=== PATIENT | male | born 1950 | race Two or more races ===

== ENCOUNTER 2022-02-17 11:01 | Outpatient (REF) | payer OTHER, SELFPAY ==
[2022-02-17 12:47] LABS: Alanine Aminotransferase 25 U/L (0-40); Albumin Level 3.9 g/dL (3.5-5.0); Alkaline Phosphatase 82 U/L (39-117); Anion Gap 13 (12-20); Aspartate Amino Transferase 18 U/L (5-37); Bilirubin Total 0.5 mg/dL (0.0-1.0); Blood Urea Nitrogen 16 mg/dL (9-16); Calcium 9.7 mg/dL (8.4-10.2); Carbon Dioxide 23 mmol/L (22-29); Chloride 106 mmol/L (96-108); Cholesterol 133 mg/dL; Estimated Glomerular Filt Rate > 60; Glucose Random 194 mg/dL (60-115); HDL Cholesterol 44 mg/dL; LDL Cholesterol Calculated 65 mg/dl; Potassium 4.3 mmol/L (3.3-5.1); Sodium 138 mmol/L (135-145); Total Protein 7.6 g/dL (6.5-8.0); Triglycerides 121 mg/dL
== END 2022-02-17 11:02 | disposition home or self-care (01) ==
LOC: HO.LAB 11:01
PROVIDERS: Absent Provider Physician Assistant; PCP Nurse Practitioner Family; Visit Provider Nurse Practitioner Family
DX: E11.9 Type 2 diabetes mellitus without complications (principal); E78.5 Hyperlipidemia, unspecified
CPT/HCPCS: 36415; 80053; 80061

== ENCOUNTER 2022-10-23 14:33 | Outpatient (AMB) | payer MEDICARE, SELFPAY ==
[2022-10-23 14:37] VITALS: BP 143/81; PULSE 72; BMI 30.2
--- NOTE | 2022-10-23 14:37 | MHC.OFFVIS ---
Intake Vital Signs 10/23/22 14:37 Height 5 ft 6 in Weight 186 lb 15.232 oz BMI 30.2 BP 143/81 H Blood Pressure Location Lt brachial Position Sitting Pulse 72 Intake Visit Reasons: Fecal abnormalities Intake Note: Ralph presents in office as a new.patient for fecal abnormalities PT CC: pt report having no concerns pt denies any other GI Issues Electric Train Driver Required: Yes Electric Train Driver Language: Greek Accompanied by: Spouse Allergies metformin Adverse Reaction (Intermediate, Verified 10/23/22 14:39) Abdominal Pain HPI Fecal abnormalities HPI Details 72 year old? male here today for pre colonoscopy screening.? Patient was sent to us by his PCP.? This is his first colonoscopy screening.? Patient had positive Cologuard that was done in July of 2022. Patient denies any gastrointestinal symptoms in the past or at present.? Denies any personal or family history of gastrointestinal disease, colon polyps, or cancer.? Denies history of difficulty with sedation or anesthesia in the past.? Negative for history of sleep apnea.? Denies any history of cardiac, renal, pulmonary, or hepatic disease.?? No history of infectious? diseases like hepatitis A, B, C, HIV or tuberculosis.? Patient is not on any anticoagulation therapy. PFSH Surgical History H/O hernia repair Family History Sister Heart disease Father Throat cancer Social History Housing: House Patient Tobacco Use Status: Never used Tobacco e-Cigarette/Vaping Use: Never Used Second Hand Smoke Exposure: No service: No Current occupational status: retired Cognitive needs: No Hearing needs: No Vision needs: No Review of Systems Const Denies weight gain and Denies weight loss ENT Reports no additional complaints, Denies dysphagia and Denies odynophagia Card Reports no additional complaints Resp Reports no additional complaints GI Denies abdominal pain, Denies belching, Denies melena, Denies bloating, Denies change in bowel habits, Denies dysphagia, Denies excessive flatus, Denies dyspepsia, Denies heartburn, Denies diarrhea, Denies loose stools, Denies nausea, Denies odynophagia and Denies vomiting Reports no additional complaints Musc Reports no additional complaints Neuro Reports no additional complaints Psych Reports no additional complaints Endo Reports no additional complaints Physical Exam Vital Signs: Last Vital Signs Pulse 72 10/23/22 14:37 BP 143/81 H 10/23/22 14:37 BMI result Body Mass Index 30.2 Const General: healthy appearing, no acute distress and well developed Nutritional Appearance: obese Orientation/consciousness: patient oriented x3 HEENT Head: Yes normal to inspection, Yes normocephalic and Yes atraumatic Face and sinus: Yes normal facial exam Mouth: Normal oral and palatal mucosa present Throat: Yes posterior oropharynx normal, Yes tonsils normal and Yes uvula midline Eyes General: appearance normal, both eyes and all related structures Neck Neck: Yes normal visual inspection, Yes full ROM and Yes trachea midline Thyroid: Thyroid normal Resp Effort & Inspection: normal respiratory effort, able to speak in complete sentences, no tracheal deviation and symmetric chest movement Auscultation: clear to auscultation bilaterally Cardio Rate: regular rate Heart sounds: S1 normal heart sound present and S2 normal heart sound present GI Inspection: Yes normal to inspection, No distended and Yes obesity Palpation (GI): Soft to palpation, not firm, nontender and No hepatosplenomegaly present Auscultation: normal bowel sounds General: Yes no CVA tenderness Back/Spine/Pelvis Back: no CVA tenderness Skin General skin exam: elasticity normal, turgor normal and dry skin Neuro General: patient oriented x3 Psych Appearance: grossly normal Mental Status: mental status grossly normal Speech and movement: Normal speech and movement present Assessment & Plan Assessment & Plan (1) Positive colorectal cancer screening using Cologuard test: Code(s): R19.5 - Other fecal abnormalities Plan: Patient denies any GI, cardiac or respiratory symptoms.? Denies any issues with anesthesia in the past.? Denies any history of sleep apnea.? No history infectious diseases in the past or present.? Not on any anticoagulation therapy.? No family or personal history of colon cancer or polyps.? Patient denies melena, hematochezia, unintentional weight loss or ribbon like stools.? Positive Cologuard in July of 2022. Discussed at length the pre-procedure,? prep, diet & medications as well as what to expect prior, during and after the procedure.?? Stressed the importance of good bowel prep. ?Recommended the use of Vaseline or Calmoseptine OTC & baby wipes with bowel movements to promote comfort.? ?Patient verbalizes understanding and agrees to plan of care.? He was given the opportunity to ask questions and all questions answered.? We will see him after the procedure.? Medications: New bisacodyl (Dulcolax (bisacodyl)) take 2 tabs at noon the day before your colonoscopy 10 mg (2 x 5 mg) PO ONCE 2 tabs 0RF 1 day Z12.11 - Encounter for screening for malignant neoplasm of colon bisacodyl (Dulcolax (bisacodyl)) take 2 tabs at noon the day before your colonoscopy 10 mg (2 x 5 mg) PO ONCE 2 tabs 0RF 1 day Z12.11 - Encounter for screening for malignant neoplasm of colon polyethylene glycol 3350 (Miralax) As directed by gastroenterology department at [facility] 238 grams PO ONCE 238 grams 0RF Z12.11 - Encounter for screening for malignant neoplasm of colon polyethylene glycol 3350 (Miralax) As directed by gastroenterology department at [facility] 238 grams PO ONCE 238 grams 0RF Z12.11 - Encounter for screening for malignant neoplasm of colon Coding Level of Care Code New Pt Level 3 (91868) Diagnoses Positive colorectal cancer screening using Cologuard test R19.5 Time Spent (min) 40 Comment 30 minutes spent with patient and additional 10 minutes spent reviewing his records
== END 2022-10-23 16:00 | disposition home or self-care (01) ==
PROVIDERS: PCP Nurse Practitioner Family; Visit Provider Nurse Practitioner Family
DX: R19.5 Other fecal abnormalities (principal)
CPT/HCPCS: 99203

== ENCOUNTER → 2022-10-23 14:33 | Outpatient (BNVA) | payer MEDICARE, SELFPAY | PROVIDERS: PCP Nurse Practitioner Family; Visit Provider Nurse Practitioner Family ==

== ENCOUNTER 2022-12-05 12:43 | Day surgery (SDC) | payer MEDICARE, SELFPAY ==
--- NOTE | 2022-12-05 12:53 | MHC.SHP ---
Documented by User: Lesly Aldana MD 12/05/22 13:33 Pre-Procedural Eval Section A Date of Service: 12/05/22 Section B Chief Complaint: Other fecal abnormalities Details of Present Illness: pos cologuard Relevant Family History (Specify if Yes): No Relevant Social History: None Present Medications: see Short Stay Collaborative assessment Medical History: Significant History (type 2 diabetes, hypertension, hyperlipidemia. ..) History of Previous Operations: Relevant previous surgery/procedure and date(s) (hernia repair) Allergies: Allergies Allergy/AdvReac Type Severity Reaction Status Date / Time metformin AdvReac Intermediate Abdominal Verified 10/23/22 14:39 Pain Review of Systems Sugical H&P ROS: Negative: Constitution, Cardiovascular, Respiratory, Neurological, Psychiatric, Hem-Onc, Allergic/Immunologic, Gastrointestinal, Genitourinary, Musculoskeletal, Integumentary, Endocrine and Eyes/Ears/Nose/Throat Exam Surgical H&P Exam: Normal: HEENT, Normal: Heart, Normal: Lungs, Normal: Extremities, Normal: Abdomen, Normal: Skin and Normal: Neurological Plan Diagnosis/Plan: Unchanged I have reviewed the history and physical and performed a pertinent physical examination on my patient. No changes have occurred unless specified. Time Spent With Patient Time: Total time managing care of this patient today ____ minutes. Documented by User: Maryam Hart DO 12/05/22 13:27 Pre-Procedural Eval Section A Date of Service: 12/05/22 Section B Chief Complaint: Other fecal abnormalities
[2022-12-05 13:15] VITALS: BMI 29.9
[2022-12-05 13:21] VITALS: BP 147/86; PULSE 63; RESP 18; TEMP 35.7; O2SAT 98
[2022-12-05 13:25] LABS: Glucose, Whole Blood 157 mg/dL (60-115)
--- NOTE | 2022-12-05 13:25 | HO.ANESPROP2 ---
Documented by User: Janna Barreto MD 12/05/22 13:05 [facility] Active Problems Active Problems: All Active Problems (Updated 07/25/22 @ 14:48 by Douglas Eckert PA-C) Positive colorectal cancer screening using Cologuard test (Acute) Obese (Acute) Colon cancer screening (Acute) HTN (hypertension) (Acute) HLD (hyperlipidemia) (Acute) DMII (diabetes mellitus, type 2) (Acute) Past Medical History Functional capacity: independent ambulation Family History Family History Sister Heart disease Father Throat cancer Surgical History Surgical History H/O hernia repair Social History Social History Housing: House Patient Tobacco Use Status: Never used Tobacco e-Cigarette/Vaping Use: Never Used Second Hand Smoke Exposure: No Use of substances other than those prescribed or required for medical reasons: No Are you DNR?: No Advance Directives: No Advance Directives Information Provided: Yes service: No Current occupational status: retired Cognitive needs: No Hearing needs: No Vision needs: No Meds Allergies Allergy/AdvReac Type Severity Reaction Status Date / Time metformin AdvReac Intermediate Abdominal Verified 10/23/22 14:39 Pain Home Medications Medication Instructions Recorded Confirmed Last Taken Type alcohol swabs (Alcohol Prep Pads) pad topical QID diabetes mellitus 05/03/21 06/15/22 Unknown History type 2 blood-glucose meter (OneTouch #1 ea 05/03/21 06/15/22 Unknown History Verio Flex Meter) pen needle, diabetic 31 gauge x #1,200 ea 05/03/21 06/15/22 Unknown History 5/16 (BD Ultra-Fine Short Pen Needle) insulin lispro 100 unit/mL 8 unit subcut DAILY 06/15/22 06/15/22 Unknown History subcutaneous pen (Humalog KwikPen (U-100) Insulin) Exam Exam Date and Time: December 05, 2022 [id number] Documented by User: Maryam Hart DO 12/05/22 13:29 HPI - Anesthesia Eval Consult details Narrative: 72 yo M presenting for colonoscopy [facility] Family History Family History Sister Heart disease Father Throat cancer Surgical History Surgical History H/O hernia repair History of Problems with Anesthesia: No Social History Social History Housing: House Patient Tobacco Use Status: Never used Tobacco e-Cigarette/Vaping Use: Never Used Second Hand Smoke Exposure: No Use of substances other than those prescribed or required for medical reasons: No Are you DNR?: No Advance Directives: No Advance Directives Information Provided: Yes service: No Current occupational status: retired Cognitive needs: No Hearing needs: No Vision needs: No Meds Allergies Allergy/AdvReac Type Severity Reaction Status Date / Time metformin AdvReac Intermediate Abdominal Verified 10/23/22 14:39 Pain Home Medications Medication Instructions Recorded Confirmed Last Taken Type alcohol swabs (Alcohol Prep Pads) pad topical QID diabetes mellitus 05/03/21 06/15/22 Unknown History type 2 blood-glucose meter (OneTouch #1 ea 05/03/21 06/15/22 Unknown History Verio Flex Meter) pen needle, diabetic 31 gauge x #1,200 ea 05/03/21 06/15/22 Unknown History 5/16 (BD Ultra-Fine Short Pen Needle) insulin lispro 100 unit/mL 8 unit subcut DAILY 06/15/22 06/15/22 Unknown History subcutaneous pen (Humalog KwikPen (U-100) Insulin) Exam Height,Weight and Vital Signs: Height 5 ft 6 in Weight 83.915 kg Vital Signs Temperature 96.3 F L 12/05/22 13:21 Pulse Rate 63 12/05/22 13:21 Respiratory Rate 18 12/05/22 13:21 Blood Pressure 147/86 H 12/05/22 13:21 Pulse Oximetry 98 12/05/22 13:21 Oxygen Delivery Method Room Air 12/05/22 13:21 Temperature 96.3 F L 12/05/22 13:21 Pulse Rate 63 12/05/22 13:21 Respiratory Rate 18 12/05/22 13:21 Blood Pressure 147/86 H 12/05/22 13:21 Pulse Oximetry 98 12/05/22 13:21 Oxygen Delivery Method Room Air 12/05/22 13:21 Airway Mallampati Class: II TM Dist: >3cm Neck ROM: Full Loose/Missing/Broken Teeth: Yes (edentulous) Heart: S1S2 Lungs: CTAB Assessment and Plan Assessment Anesthesia Assessment: Anesthesia Plan Discussed and Chart Reviewed Final Anesthetic Review History of Problems with Anesthesia: No NPO: Yes ASA Class: II Final Preanesthetic Review: No Changes in Pt Med Stat, Meds/Allgs Chart Reviewed, Consent Obtained/Reviewed and Anes Risks/Benef Reviewed Patient Risk: Low Procedure Risk: Low Anesthetic Plan Anesthetic Plan: MAC: and Agree w/ Assess. and Plan Disposition: Standard PACU
[2022-12-05] MEDS: Lactated Ringers 1,000 ML 50 ML IVCONT (13:26)
--- NOTE | 2022-12-05 14:24 | P.OP_ITS ---
Operative Note Operative Note Date of Service: 12/05/22 Narrative: Operative Information Procedure Description: Colonoscopy Indication: pos stool test Anesthesia: MAC COLONOSCOPY Instrument: Olympus variable stiffness pediatric scope 190L Colonoscopy Monitoring: Vital signs and clinical assessment, continuous EKG monitoring, Pulse oximetry, Carbon Dioxide monitoring and blood pressure monitoring were done throughout the procedure. Colon withdrawal time was 39 minutes. Procedure: The patient was placed in the left lateral decubitis position and pre-procedure medications were administered. After a digital rectal examination of the ano-rectum, the video colonoscope was inserted into the rectum and advanced through the colon to the cecum/TI. The colonoscope was slowly withdrawn in a retrograde panoramic fashion and the colon mucosa was carefully examined including a retroflexed view of the rectum. Findings and interventions are described below. Procedure Difficulty: moderate Findings: Terminal Ileum-normal Cecum: 4-6 mm sessile polyp removed with biopsy forceps Ascending Colon: x4 larger sessile polyps measuring 11-15 mm in size. Three lifted with eleview and removed with either cold or hot snare. One lesion was clipped for hemostasis. Another 5-7 mm sessile polyp removed with cold biopsy forceps Transverse Colon -normal Descending Colon: 8-10 mm sessile polyp removed with cold snare and residual tissue with cold forceps Sigmoid Colon: normal Rectum: Retroflexion with small internal hemorrhoids, grade I Anorectum - normal Colon preparation: [place] Bowel Preparation Scale Right colon; 1-2 Transverse colon: 2 Left colon; 2 (0 = Unprepared colon segment with mucosa not seen due to solid stool that cannot be cleared. 1 = Portion of mucosa of the colon segment seen, but other areas of the colon segment not well seen due to staining, residual stool and/or opaque liquid. 2 = Minor amount of residual staining, small fragments of stool and/or opaque liquid, but mucosa of colon segment seen well. 3 = Entire mucosa of colon segment seen well with no residual staining, small fragments of stool or opaque liquid) Impression and Post Procedure Diagnosis: polyps internal hemorrhoids Plan: High fiber diet leaflet Avoid straining at stool, epsom salts and sitz bath, anusol supps or cream Repeat Colonoscopy in 3-6 months due to polyp burden and fair prpe on right where the majority of the polyps were located or earlier if clinically indicated Above findings were reviewed with the patient and relevant handouts were provided if indicated.
[2022-12-05 14:28] VITALS: BP 97/53; PULSE 70; RESP 18; TEMP 36.2; O2SAT 95
[2022-12-05 14:43] VITALS: BP 128/73; PULSE 55; RESP 16; TEMP 36.1; O2SAT 96
== END 2022-12-05 15:32 | disposition home or self-care (01) ==
PROVIDERS: PCP Physician Assistant; Visit Provider Internal Medicine Gastroenterology
PROC: 0DJD8ZZ Inspection of Lower Intestinal Tract, Via Natural or Artificial Opening Endoscopic (ICD-10-PCS; CPT 45378; principal; 2022-12-05 10:50)
DX: R19.5 Other fecal abnormalities (principal); D12.0 Benign neoplasm of cecum; D12.2 Benign neoplasm of ascending colon; D12.4 Benign neoplasm of descending colon; K64.0 First degree hemorrhoids; I10 Essential (primary) hypertension; E78.5 Hyperlipidemia, unspecified; E66.9 Obesity, unspecified; Z68.30 Body mass index [BMI] 30.0-30.9, adult; E11.9 Type 2 diabetes mellitus without complications; Z79.4 Long term (current) use of insulin; Z88.8 Allergy status to other drugs, medicaments and biological substances
CPT/HCPCS: 45385; 45380; 45381; 82947; 88305

== ENCOUNTER → 2022-12-05 12:43 | Outpatient (BNV) | payer MEDICARE, SELFPAY | PROVIDERS: PCP Physician Assistant; Visit Provider Internal Medicine Gastroenterology | DX: R19.5 Other fecal abnormalities (principal); D12.0 Benign neoplasm of cecum; D12.2 Benign neoplasm of ascending colon; D12.4 Benign neoplasm of descending colon; K64.0 First degree hemorrhoids | CPT/HCPCS: 45380; 45381; 45385 ==

== ENCOUNTER 2022-12-20 15:25 | Outpatient (AMB) | payer MEDICARE, SELFPAY ==
--- NOTE | 2022-12-20 15:34 | A.OFFVIS_ITS ---
Intake Vital Signs 12/20/22 15:36 Height 5 ft 6 in Weight 185 lb BMI 29.9 BP 158/81 H Blood Pressure Location Lt brachial Position Sitting Pulse 65 Intake Visit Reasons: S/P [place]; Dr. Aldana Intake Note: Ralph presents in the office as a follow up colonoscopy. CC: No concerns he states everything has been normal. Papier Mache' Molder Required: Yes Papier Mache' Molder Name: Travis [id number] Allergies metformin Adverse Reaction (Intermediate, Verified 12/27/22 14:19) Abdominal Pain HPI S/P [place]; Dr. Aldana HPI Details LAST VISIT: Positive colorectal cancer screening using Cologuard test Patient denies any GI, cardiac or respiratory symptoms.? Denies any issues with anesthesia in the past.? Denies any history of sleep apnea.? No history infectious diseases in the past or present.? Not on any anticoagulation therapy.? No family or personal history of colon cancer or polyps.? Patient denies melena, hematochezia, unintentional weight loss or ribbon like stools.? Positive Cologuard in July of 2022. Discussed at length the pre-procedure,? prep, diet & medications as well as what to expect prior, during and after the procedure.?? Stressed the importance of good bowel prep. ?Recommended the use of Vaseline or Calmoseptine OTC & baby wipes with bowel movements to promote comfort.? ?Patient verbalizes understanding and agrees to plan of care.? He was given the opportunity to ask questions and all questions answered.? We will see him after the procedure.? COLONOSCOPY: Findings: Terminal Ileum-normal Cecum: 4-6 mm sessile polyp removed with biopsy forceps Ascending Colon: x4 larger sessile polyps measuring 11-15 mm in size. Three lifted with eleview and removed with either cold or hot snare. One lesion was clipped for hemostasis. Another 5-7 mm sessile polyp removed with cold biopsy forceps Transverse Colon -normal Descending Colon: 8-10 mm sessile polyp removed with cold snare and residual tissue with cold forceps Sigmoid Colon: normal Rectum: Retroflexion with small internal hemorrhoids, grade I Anorectum - normal Colon preparation: [place] Bowel Preparation Scale Right colon; 1-2 Transverse colon: 2 Left colon; 2 (0 = Unprepared colon segment with mucos a not seen due to solid stool that cannot be cleared. 1 = Portion of mucosa of the colon segme nt seen, but other areas of the colon segment not well seen due to staining, residual stool and/or opaque liquid. 2 = Minor amount of residual staining, s mall fragments of stool and/or opaque liquid, but mucosa of colon segment seen well. 3 = Entire mucosa of colon segment seen well with no residual staining, small fragments of stool or opaque liquid) Impression and Post Procedure Diagnosis: polyps internal hemorrhoids Plan: High fiber diet leaflet Avoid straining at stool, epsom salts and sitz bath, anusol supps or cream Repeat Colonoscopy in 3-6 months due to polyp burden and fair prpe on right where the majority of the polyps were located or earlier if clinically indicated PATHOLOGY REPORT Diagnosis A. Cecum, polypectomy: Tubular adenoma; negative for high-grade dysplasia or carcinoma. B. Colon, ascending, polypectomies: Fragments of tubular adenomata; negative for high-grade dysplasia or carcinoma. C. Colon, descending, polypectomy: Tubular adenoma; negative for high-grade dysplasia or carcinoma TODAY'S VISIT: Patient is here today for follow-up and to discuss colonoscopy results. Patient had multiple polyps that showed tubular adenoma, for larger polyps found in the ascending colon. Patient also had suboptimal prep and recommendation was made for patient to return for colorectal screening in 3-6 months. Patient reports that he feels like he is moving his bowels well without any issues. States that he feels like he empties his bowels completely. Patient denies any issues with prep day before his procedure. procedure. Patient denies melena, hematochezia, unintentional weight loss or ribbon like stools. Will discuss prep and will order extra Dulcolax for 1 week before the procedure. Patient otherwise reports to be feeling well. Denies any GI concerning symptoms. Patient reports that he did well with anesthesia. [facility] Medical History (Updated 12/20/22 @ 16:14 by JENNIFER Ruelas) Tubular adenoma Surgical History Hx of colonoscopy H/O hernia repair Family History Sister Heart disease Father Throat cancer Social History Housing: House Patient Tobacco Use Status: Never used Tobacco e-Cigarette/Vaping Use: Never Used Second Hand Smoke Exposure: No service: No Current occupational status: retired Cognitive needs: No Hearing needs: No Vision needs: No Review of Systems Const Denies weight gain and Denies weight loss ENT Reports no additional complaints, Denies dysphagia and Denies odynophagia Card Reports no additional complaints Resp Reports no additional complaints GI Denies abdominal pain, Denies belching, Denies melena, Denies bloating, Denies change in bowel habits, Denies dysphagia, Denies excessive flatus, Denies dyspepsia, Denies heartburn, Denies diarrhea, Denies loose stools, Denies nausea, Denies odynophagia and Denies vomiting Reports no additional complaints Musc Reports no additional complaints Neuro Reports no additional complaints Psych Reports no additional complaints Endo Reports no additional complaints Physical Exam Vital Signs: Last Vital Signs Pulse 65 12/20/22 15:36 BP 158/81 H 12/20/22 15:36 BMI result Body Mass Index 29.9 Const General: healthy appearing, no acute distress and well developed Nutritional Appearance: obese Orientation/consciousness: patient oriented x3 HEENT Head: Yes normal to inspection, Yes normocephalic and Yes atraumatic Face and sinus: Yes normal facial exam Mouth: Normal oral and palatal mucosa present Throat: Yes posterior oropharynx normal, Yes tonsils normal and Yes uvula mid line Eyes General: appearance normal, both eyes and all related structures Neck Neck: Yes normal visual inspection, Yes full ROM and Yes trachea midline Thyroid: Thyroid normal Resp Effort & Inspection: normal respiratory effort, able to speak in complete sentences, no tracheal deviation and symmetric chest movement Auscultation: clear to auscultation bilaterally Cardio Rate: regular rate Heart sounds: S1 normal heart sound present and S2 normal heart sound present GI Inspection: Yes normal to inspection, No distended and Yes obesity Palpation (GI): Soft to palpation, not firm, nontender and No hepatosplenomegaly present Auscultation: normal bowel sounds General: Yes no CVA tenderness Back/Spine/Pelvis Back: no CVA tenderness Skin General skin exam: elasticity normal, turgor normal and dry skin Neuro General: patient oriented x3 Psych Appearance: grossly normal Mental Status: mental status grossly normal Assessment & Plan Assessment & Plan (1) Tubular adenoma: Code(s): D36.9 - Benign neoplasm, unspecified site (2) Status post colonoscopy: Code(s): Z98.890 - Other specified postprocedural states Plan Discussed with patient the importance of good bowel prep. Trying to do good job with clear liquids. Avoiding fiber for few days before the procedure. Patient will start taking Dulcolax 7 days before procedure in the evening with 1 day before procedure for tablets at noon. Patient will do split MiraLax prep. May book the procedure for patient. Patient denies any issues with anesthesia. Not on any anticoagulation medications. Patient denies any respiratory or cardiac symptoms. I will see patient after the procedure, sooner on as needed basis. Patient is agreeable to this plan and verbalizes understanding of instructions. He was given the opportunity to ask questions and all questions answered. Thank you for allowing to participate in his care Medications: New bisacodyl (Dulcolax (bisacodyl)) Comience a dora 2 tabletas todas las noches 7 [place] antes del colonoscopia y 1 rashad antes del procedimiento, tome 4 tabletas al mediodia seguido de la colonoscopia de MiraLax. 10 mg (2 x 5 mg) PO BEDTIME 16 tabs 0RF Z12.11 - Encounter for screening for malignant neoplasm of colon polyethylene glycol 3350 (Miralax) As directed by gastroenterology department at [facility] 238 grams PO ONCE 238 grams 0RF Z12.11 - Encounter for screening for malignant neoplasm of colon bisacodyl (Dulcolax (bisacodyl)) Comience a dora 2 tabletas todas las noches 7 [place] antes del colonoscopia y 1 rashad antes del procedimiento, tome 4 tabletas al mediodia seguido de la colonoscopia de MiraLax. 10 mg (2 x 5 mg) PO BEDTIME 16 tabs 0RF Z12.11 - Encounter for screening for malignant neoplasm of colon Coding Level of Care Code Est Pt Level 3 (82318) Diagnoses Tubular adenoma D36.9 Status post colonoscopy Z98.890 Time Spent (min) 30 Comment 20 minutes spent with patient and additional 10 minutes spent reviewing his records
[2022-12-20 15:36] VITALS: BP 158/81; PULSE 65; BMI 29.9
== END 2022-12-20 16:46 | disposition home or self-care (01) ==
PROVIDERS: PCP Nurse Practitioner Family; Visit Provider Nurse Practitioner Family
DX: D36.9 Benign neoplasm, unspecified site (principal); Z98.890 Other specified postprocedural states
CPT/HCPCS: 99213

== ENCOUNTER → 2022-12-20 15:25 | Outpatient (BNVA) | payer MEDICARE, SELFPAY | PROVIDERS: PCP Nurse Practitioner Family; Visit Provider Nurse Practitioner Family | DX: D36.9 Benign neoplasm, unspecified site (principal); Z98.890 Other specified postprocedural states | CPT/HCPCS: 99212 ==

== ENCOUNTER 2022-12-27 13:55 | Outpatient (AMB) | payer MEDICARE, SELFPAY ==
[2022-12-27 14:02] VITALS: BP 136/88; PULSE 71; O2SAT 96; BMI 30.8
--- NOTE | 2022-12-27 14:02 | MHC.PC.OV ---
Vital Signs 12/27/22 14:02 Height 5 ft 6 in Weight 191 lb BMI 30.8 BP 136/88 Blood Pressure Location Lt brachial Position Sitting Pulse 71 Pulse Source Pulse Oximeter Pulse Oximetry (%) 96 Oxygen Delivery Method Room Air Intake Visit Reasons: 6 MONTH F/U Intake Note: Patient is here to follow up on DMII. Pigment Presser Required: Yes Pigment Presser Language: Security System Engineer Name: ITALIAN Information Interpreted: clinical only Boilermaker Welder: Present Accompanied by: Spouse Allergies metformin Adverse Reaction (Intermediate, Verified 12/27/22 14:19) Abdominal Pain Medication List - Last Reconciled 12/27/22 by Douglas Eckert PA-C alcohol swabs (Alcohol Prep Pads) pad topical QID atorvastatin 40 mg PO DAILY 30 days blood sugar diagnostic ([employer] Un[employer] LimitedTouch Verio test strips) As directed blood-glucose meter ([employer] Un[employer] LimitedTouch Verio Flex Meter) As directed insulin aspart U-100 (Novolog FlexPen U-100 Insulin aspart) 9 units subcut insulin syringe-needle U-100 As directed lancets ([employer] Delica Plus Lancet) As directed pen needle, diabetic (BD Ultra-Fine Short Pen Needle) As directed Tobacco use date assessed: 02/09/22 Fall risk assessment: No Falls in past year Last assessed Fall Risk: 12/27/22 Dental Screening Dental Screen Date: 12/27/22 Did you have a dental visit in the last 12 months?: Yes Did you have a dental problem in the last 6 months where you did not have access to dental care?: No Was dental information given to patient?: Patient has dentist HPI 6 MONTH F/U HPI Details Patient is a 72-year-old male here today here for follow-up visit.? ? Patient is [place] Citizen-speaking only thus we used salt refiner . ?patient has a past medical history significant for type 2 diabetes, hypertension, hyperlipidemia. .. Type 2 diabetes:? Continues with p.r.n. use insulin therapy. Has been taking Humalog 8-9 units depending on blood sugars she things are high. Today's A1c elevated at 8.0. He report he does check his sugars at home once daily/ PRN. of note metformin though had side effect of abd pain. .. HLD: Patient continues statin therapy without side effect. Most recent lipid panel showing appropriate LDL and total cholesterol Colon cancer screening- has recently undergone colonoscopy, fair bowel prep and polyps were found. Needs repeat in 6 months. [facility] Medical History (Updated 12/20/22 @ 16:14 by Aziza Miller [facility]) Tubular adenoma Surgical History Hx of colonoscopy H/O hernia repair Family History Sister Heart disease Father Throat cancer Housing: House Patient Tobacco Use Status: Never used Tobacco e-Cigarette/Vaping Use: Never Used Second Hand Smoke Exposure: No service: No Current occupational status: retired Cognitive needs: No Hearing needs: No Vision needs: No Questionnaire Thrive Questionnaire Date Thrive assessed: 02/09/22 CHRISS-7 AMB Questionnaire CHRISS-7 Date CHRISS - 7 assessed: 06/15/22 Source: Developed by Drs. Himanshu Wagner, Chaya Bazzi, Aneesh Lopez and colleagues, with an educational [place] from [employer]. Review of Systems Const Denies headache(s) Eyes Denies loss of vision ENT Denies vertigo, Denies dizziness, Denies headache(s) and Denies sore throat Card Denies chest pain, Denies leg edema and Denies lightheadedness Resp Denies cough, Denies hemoptysis and Denies wheezing GI Denies abdominal pain, Denies melena, Denies constipation, Denies diarrhea and Denies vomiting Denies dysuria, Denies urinary frequency and Denies urinary urgency Musc Denies arthralgias, Denies joint swelling, Denies numbness and Denies tingling Neuro Denies Abnormal speech present, Denies behavioral changes, Denies vertigo, Denies dizziness, Denies headache(s), Denies loss of vision, Denies memory loss, Denies numbness and Denies tingling Psych Denies anxiety, Denies behavioral changes, Denies depression, Denies memory loss and Denies panic attacks Vic/Lymph Denies easy bleeding and Denies easy bruising Aller/Immun Denies wheezing Physical exam (Primary Care) Vital Signs: Last Vital Signs Pulse 71 12/27/22 14:02 BP 136/88 12/27/22 14:02 Pulse Ox 96 12/27/22 14:02 Oxygen Delivery Method Room Air 12/27/22 14:02 BMI result Body Mass Index 30.8 BMI Assessment/Plan discussion: High Tobacco/Smoking Status: Tobacco use Status Tobacco use date assessed 02/09/22 12/27/22 14:04 Patient Tobacco Use Status Never used Tobacco 12/27/22 14:04 e-Cigarette/Vaping Use Never Used 12/27/22 14:04 Thrive Assessment: Date of Thrive Assessment Date Thrive assessed 02/09/22 12/27/22 14:04 Const Other: Obese General: healthy appearing, no acute distress, alert and awake Nutritional Appearance: well nourished Orientation/consciousness: oriented to person, oriented to place and oriented to time HENMT Ears: TM's normal bilaterally General nose exam: Normal nasal mucous membranes and turbinates present Eyes Conjunctivae: conjunctivae normal Sclerae: sclerae normal Pupils: Equal, round and reactive pupils present Neck Neck: Yes no lymphadenopathy and Yes no JVD Thyroid: Thyroid normal Carotids: no bruits Resp Effort & Inspection: normal respiratory effort and not tachypneic Auscultation: no crackles, no rales, no rhonchi and no wheezes Cardio Rate: regular rate Rhythm: regular rhythm Heart sounds: no murmurs and normal S1 and S2 GI Palpation (GI): Soft to palpation, nontender, no hepatomegaly and no splenomegaly Auscultation: normal bowel sounds Skin General skin exam: no rashes or lesions noted and dry skin Neuro General: oriented to person, oriented to place and oriented to time Cranial nerves: Yes Equal, round and reactive pupils present Speech: No Abnormal speech present Gait exam (Neuro): Normal gait present Motor exam (neuro): no tremor noted Extrem Right upper extremity: full ROM Left upper extremity: full ROM Right lower extremity: full ROM; no edema Left lower extremity: full ROM; no edema Psych Mental Status: mental status grossly normal Speech and movement: Normal speech and movement present Affect: normal affect Attitude: cooperative Thought process: Normal thought process present Results AMB Hemoglobin A1c AMB Hemoglobin A1c 8.0 % Last Edit by Katiuska Grier on 12/27/22 14:32 Assessment and Plan Assessment & Plan (1) DMII (diabetes mellitus, type 2): Code(s): E11.9 - Type 2 diabetes mellitus without complications Qualifiers: Diabetes mellitus long term care phlebotomist insulin use: with long term care phlebotomist use Diabetes mellitus complication status: without complication Qualified Code(s): E11.9 - Type 2 diabetes mellitus without complications; Z79.4 - middle or intermediate school principal (current) use of insulin Plan: Patient's type 2 diabetes well controlled with p.r.n. use of humalog and diabetic diet. Reports taking 8 or 9 units depending on his blood sugars. Today's A1c at 8.0 from 6.8. Will transition him to a long-acting insulin Lantus 10 units daily. With goal A1c to be below 7.0 (2) HTN (hypertension): Code(s): I10 - Essential (primary) hypertension Qualifiers: Hypertension type: primary hypertension Qualified Code(s): I10 - Essential (primary) hypertension Plan: Patient's blood pressure well controlled with lifestyle at this time. Goal blood pressure be below 140/90 (3) HLD (hyperlipidemia): Code(s): E78.5 - Hyperlipidemia, unspecified Qualifiers: Hyperlipidemia type: mixed hyperlipidemia Qualified Code(s): E78.2 - Mixed hyperlipidemia Plan: Patient continues on statin therapy without side effect. Most recent lipid panel showing acceptable LDL. Goal LDL to be below 100 (4) Tubular adenoma: Code(s): D36.9 - Benign neoplasm, unspecified site Plan: Needs repeat colonoscopy in 6 months due to poor bowel prep. Orders: Orders AMB Hemoglobin A1c Today E11.9 - Type 2 diabetes mellitus without complications Medications: New pen needle, diabetic (BD Ultra-Fine Short Pen Needle) As directed 100 ea 3RF E11.9 - Type 2 diabetes mellitus without complications, Z79.4 - middle or intermediate school principal (current) use of insulin insulin glargine (Lantus Solostar U-100 Insulin) 10 units (0.1 mL) subcut QAM 30 days 15 mL 1RF E11.9 - Type 2 diabetes mellitus without complications, Z79.4 - middle or intermediate school principal (current) use of insulin Changed From atorvastatin 40 mg PO DAILY 30 days 30 tabs 1RF E78.5 - Hyperlipidemia, unspecified To atorvastatin 40 mg PO DAILY 90 days 90 tabs 2RF E78.5 - Hyperlipidemia, unspecified Coding Level of Care Code Est Pt Level 4 (30531) Diagnoses Type 2 diabetes mellitus without complication, with long-term current use of insulin E11.9; Z79.4 Diabetes mellitus long term care phlebotomist insulin use: with halfway use Diabetes mellitus complication status: without complication Primary hypertension I10 Hypertension type: primary hypertension Mixed hyperlipidemia E78.2 Hyperlipidemia type: mixed hyperlipidemia Tubular adenoma D36.9
== END 2022-12-27 14:36 | disposition home or self-care (01) ==
PROVIDERS: Visit Provider Physician Assistant
DX: E11.9 Type 2 diabetes mellitus without complications (principal); Z79.4 Long term (current) use of insulin; I10 Essential (primary) hypertension; E78.2 Mixed hyperlipidemia; D36.9 Benign neoplasm, unspecified site
CPT/HCPCS: 83036; 99214

== ENCOUNTER 2023-03-29 14:56 | Outpatient (AMB) | payer MEDICARE, SELFPAY ==
[2023-03-29 15:08] VITALS: BP 151/82; PULSE 64; RESP 17; O2SAT 98; BMI 31.6
--- NOTE | 2023-03-29 15:08 | MHC.PC.OV ---
Vital Signs 03/29/23 15:08 Height 5 ft 6 in Weight 196 lb BMI 31.6 BP 151/82 H Blood Pressure Location Lt brachial Position Sitting Respiration 17 Pulse 64 Pulse Source Pulse Oximeter Pulse Oximetry (%) 98 Oxygen Delivery Method Room Air Intake Visit Reasons: 3mth f/u Quality Assurance Clerk Required: Yes Quality Assurance Clerk Language: Montenegrin Accompanied by: Spouse Allergies metformin Adverse Reaction (Intermediate, Verified 03/29/23 15:18) Abdominal Pain Medication List - Last Reconciled 03/29/23 by Douglas Eckert PA-C alcohol swabs (Alcohol Prep Pads) pad topical QID atorvastatin 40 mg PO DAILY 90 days blood sugar diagnostic ([employer] TechnologiesTouch Verio test strips) As directed blood-glucose meter (OneTouch Verio Flex Meter) As directed insulin glargine (Lantus Solostar U-100 Insulin) 10 units (0.1 mL) subcut QAM 30 days insulin syringe-needle U-100 As directed lancets ([employer]Touch Delica Plus Lancet) As directed pen needle, diabetic (BD Ultra-Fine Short Pen Needle) As directed Tobacco use date assessed: 02/09/22 HPI 3mth f/u HPI Details Patient is a 73-year-old male here today here for follow-up visit.? ? Patient is Montenegrin-speaking only thus we used cigarette tipper . ?patient has a past medical history significant for type 2 diabetes, hypertension, hyperlipidemia. .. Type 2 diabetes:? Continues with p.r.n. use insulin therapy. Has been taking Humalog 8-9 units depending on blood sugars she things are high. Today's A1c at 8.1 from 8.0. He report he does check his sugars at home once daily/ PRN. of note metformin though had side effect of abd pain. PLAN: Will increase his Lantus dose for better blood sugar control. Goal A1c to be below 7.0 .. Hypertension: Blood pressure noted to be elevated today. Patient does not take any antihypertensive medication. Will start him on lisinopril for renal protection and blood pressure control. .. HLD: Patient continues statin therapy without side effect. Most recent lipid panel showing appropriate LDL and total cholesterol Colon cancer screening- has recently undergone colonoscopy, fair bowel prep and polyps were found. Needs repeat in 6 months. Laboratory Tests 06/15/22 12/05/22 12/27/22 15:19 13:14 14:11 POC Glucose 157 H Hgb A1c (Clinic) 6.8 H 8.0 H PFSH Medical History Tubular adenoma Surgical History Hx of colonoscopy H/O hernia repair Family History Sister Heart disease Father Throat cancer Social History Housing: House Patient Tobacco Use Status: Never used Tobacco e-Cigarette/Vaping Use: Never Used Second Hand Smoke Exposure: No service: No Current occupational status: retired Cognitive needs: No Hearing needs: No Vision needs: No Questionnaire PHQ-9 Over the last 2 weeks, how often have you been bothered by any of the following problems? 1. Little interest or pleasure in doing things: not at all 2. Feeling down, depressed, or hopeless: not at all 3. Trouble falling or staying asleep, or sleeping too much: not at all 4. Feeling tired or having little energy: not at all 5. Poor appetite or overeating: not at all 6. Feeling bad about yourself - or that you are a failure or have let yourself or your family down: not at all 7. Trouble concentrating on things, such as reading the newspaper or watching television: not at all 8. Moving or speaking so slowly that other people could have noticed. Or the opposite - being so fidgety or restless that you have been moving around a lot more than usual: not at all 9. Thoughts that you would be better off or of hurting yourself in some way: not at all Total score: 0 Depression Screening Interpretation: Negative Depression Screening Done: Yes 55155 - PHQ-9 Billing: Yes Source: Developed by Drs. Himanshu Wagner, Chaya Bazzi, Aneesh Lopez and colleagues, with an educational charlotte from [employer]. Thrive Questionnaire Date Thrive assessed: 02/09/22 CHRISS-7 AMB Questionnaire CHRISS-7 Date CHRISS - 7 assessed: 06/15/22 Feeling nervous, anxious, or on edge: 0 = Not at all Not being able to stop or control worryin = Not at all Worrying too much about different things: 0 = Not at all Trouble relaxin = Not at all Being so restless that it is hard to sit still: 0 = Not at all Becoming easily annoyed or irritable: 0 = Not at all Feeling afraid as if something awful might happen: 0 = Not at all Total CHRISS-7 score (0-4 normal; 5-9 mild; 10-14 moderate; 15-21 severe): 0 Source: Developed by Drs. Himanshu Wagner, Chaya Bazzi, Aneesh Lopez and colleagues, with an educational [place]lotte from [employer]. CHRISS-7 Assessment Billing CHRISS-7 Assessment Tool: CHRISS-7 Assessment 39440 Review of Systems Const Denies headache(s) Eyes Denies loss of vision ENT Denies vertigo, Denies dizziness, Denies headache(s) and Denies sore throat Card Denies chest pain, Denies leg edema and Denies lightheadedness Resp Denies cough, Denies hemoptysis and Denies wheezing GI Denies abdominal pain, Denies melena, Denies constipation, Denies diarrhea and Denies vomiting Denies dysuria, Denies urinary frequency and Denies urinary urgency Musc Denies arthralgias, Denies joint swelling, Denies numbness and Denies tingling Neuro Denies Abnormal speech present, Denies behavioral changes, Denies vertigo, Denies dizziness, Denies headache(s), Denies loss of vision, Denies memory loss, Denies numbness and Denies tingling Psych Denies anxiety, Denies behavioral changes, Denies depression, Denies memory loss and Denies panic attacks Vic/Lymph Denies easy bleeding and Denies easy bruising Aller/Immun Denies wheezing Physical exam (Primary Care) Vital Signs: Last Vital Signs Pulse 64 03/29/23 15:08 Resp 17 03/29/23 15:08 BP 151/82 H 03/29/23 15:08 Pulse Ox 98 03/29/23 15:08 Oxygen Delivery Method Room Air 03/29/23 15:08 BMI result Body Mass Index 31.6 Tobacco/Smoking Status: Tobacco use Status Tobacco use date assessed 02/09/22 03/29/23 15:10 Patient Tobacco Use Status Never used Tobacco 03/29/23 15:10 e-Cigarette/Vaping Use Never Used 03/29/23 15:10 PHQ-9: PHQ-9 Score PHQ-9: Total score 0 03/29/23 15:48 Depression Screening Interpretation: Negative Thrive Assessment: Date of Thrive Assessment Date Thrive assessed 02/09/22 03/29/23 15:10 Const General: healthy appearing, no acute distress, alert and awake Nutritional Appearance: well nourished Orientation/consciousness: oriented to person, oriented to place and oriented to time HENMT Ears: TM's normal bilaterally General nose exam: Normal nasal mucous membranes and turbinates present Eyes Conjunctivae: conjunctivae normal Sclerae: sclerae normal Pupils: Equal, round and reactive pupils present Neck Neck: Yes no lymphadenopathy and Yes no JVD Thyroid: Thyroid normal Carotids: no bruits Resp Effort & Inspection: normal respiratory effort and not tachypneic Auscultation: no crackles, no rales, no rhonchi and no wheezes Cardio Rate: regular rate Rhythm: regular rhythm Heart sounds: no murmurs and normal S1 and S2 GI Palpation (GI): Soft to palpation, nontender, no hepatomegaly and no splenomegaly Auscultation: normal bowel sounds Skin General skin exam: no rashes or lesions noted and dry skin Neuro General: oriented to person, oriented to place and oriented to time Cranial nerves: Yes Equal, round and reactive pupils present Speech: No Abnormal speech present Gait exam (Neuro): Normal gait present Motor exam (neuro): no tremor noted Extrem Right upper extremity: full ROM Left upper extremity: full ROM Right lower extremity: full ROM; no edema Left lower extremity: full ROM; no edema Psych Mental Status: mental status grossly normal Speech and movement: Normal speech and movement present Affect: normal affect Attitude: cooperative Thought process: Normal thought process present Results AMB Hemoglobin A1c AMB Hemoglobin A1c 8.1 % Last Edit by VANESA Hope on 03/29/23 15:49 Results Reviewed Results Reviewed: Laboratory Last Values Hgb A1c (Clinic) 8.1 % (4.0-6.0) H 03/29/23 15:00 Assessment and Plan Assessment & Plan (1) DMII (diabetes mellitus, type 2): Code(s): E11.9 - Type 2 diabetes mellitus without complications Qualifiers: Diabetes mellitus complication status: without complication Diabetes mellitus exterminator helper insulin use: with exterminator helper use Qualified Code(s): E11.9 - Type 2 diabetes mellitus without complications; Z79.4 - [facility] (current) use of insulin Plan: Patient's type 2 diabetes well controlled with p.r.n. use of humalog and diabetic diet. Reports taking 8 or 9 units depending on his blood sugars. Today's A1c at 8.1 from 8.0. Will increase his Lantus to 15 units daily.. Advised to implement more of a diabetic diet With goal A1c to be below 7.0 (2) HTN (hypertension): Code(s): I10 - Essential (primary) hypertension Qualifiers: Hypertension type: primary hypertension Qualified Code(s): I10 - Essential (primary) hypertension Plan: Patient's blood pressure slightly elevated today in office. Will add on lisinopril 5 mg. Goal blood pressure be below 140/90 (3) HLD (hyperlipidemia): Code(s): E78.5 - Hyperlipidemia, unspecified Qualifiers: Hyperlipidemia type: mixed hyperlipidemia Qualified Code(s): E78.2 - Mixed hyperlipidemia Plan: Patient continues on statin therapy without side effect. Most recent lipid panel showing acceptable LDL. Goal LDL to be below 100 Orders: Orders Comprehensive [place]. Panel Fast 03/29/23 E11.9 - Type 2 diabetes mellitus without complications, Z79.4 - exterminator helper (current) use of insulin AMB Hemoglobin A1c 03/29/23 E11.9 - Type 2 diabetes mellitus without complications Microalbumin, Random (w Creat) 03/29/23 I10 - Essential (primary) hypertension Lipid Panel 03/29/23 E78.2 - Mixed hyperlipidemia Prostate Specific Antigen Scr 03/29/23 E11.9 - Type 2 diabetes mellitus without complications, Z12.5 - Encounter for screening for malignant neoplasm of prostate, Z79.4 - [facility] (current) use of insulin Referrals Ophthalmology Referral E11.9 - Type 2 diabetes mellitus without complications, Z79.4 - exterminator helper (current) use of insulin Medications: New lisinopril 5 mg PO DAILY 90 days 90 tabs 1RF I10 - Essential (primary) hypertension Changed From insulin glargine (Lantus Solostar U-100 Insulin) 10 units (0.1 mL) subcut QAM 30 days 15 mL 1RF E11.9 - Type 2 diabetes mellitus without complications, Z79.4 - [facility] (current) use of insulin To insulin glargine (Lantus Solostar U-100 Insulin) increase dose to 15U daily 15 units (0.15 mL) subcut QAM 30 days 15 mL 1RF E11.9 - Type 2 diabetes mellitus without complications, Z79.4 - [facility] (current) use of insulin Coding Level of Care Code Est Pt Level 4 (25638) Diagnoses Type 2 diabetes mellitus without complication, with long-term current use of insulin E11.9; Z79.4 Diabetes mellitus complication status: without complication Diabetes mellitus alf insulin use: with alf use Primary hypertension I10 Hypertension type: primary hypertension Mixed hyperlipidemia E78.2 Hyperlipidemia type: mixed hyperlipidemia Additional Codes CHRISS-7 Assessment Billing - CHRISS-7 Assessment Tool: CHRISS-7 Assessment [id number] ([id number])
== END 2023-03-29 15:28 | disposition home or self-care (01) ==
PROVIDERS: PCP Nurse Practitioner Family; Visit Provider Physician Assistant
DX: E11.9 Type 2 diabetes mellitus without complications (principal)
CPT/HCPCS: 83036; 99214

== ENCOUNTER 2024-06-25 14:46 | Outpatient (AMB) | payer MEDICARE, OTHER, SELFPAY ==
--- NOTE | 2024-06-25 15:39 | A.OFFPC_ITS ---
Vital Signs 06/25/24 15:40 Height 5 ft 6 in Weight 189 lb 8 oz BMI 30.6 BP 118/82 Blood Pressure Location Lt brachial Position Sitting Pulse 60 Pulse Source Pulse Oximeter Temp 97.3 F Temp Source Temporal Artery Scan Pulse Oximetry (%) 98 Oxygen Delivery Method Room Air Intake Visit Reasons: dm f/u Recreation Officer Required: Yes Recreation Officer Language: Hospice Spiritual Care Coordinator Name: ID [id number] Accompanied by: Spouse Allergies metformin Adverse Reaction (Intermediate, Verified 06/25/24 15:49) Abdominal Pain Tobacco use date assessed: 06/25/24 Fall risk assessment: No Falls in past year Last assessed Fall Risk: 06/25/24 Dental Screening Dental Screen Date: 06/25/24 Did you have a dental visit in the last 12 months?: Yes Did you have a dental problem in the last 6 months where you did not have access to dental care?: No Was dental information given to patient?: Patient has dentist HPI dm f/u HPI Details Patient is a 74-year-old male here today here for follow-up visit.? ? 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 ?patient has a past medical history significant for type 2 diabetes, hypertension, hyperlipidemia. .. Type 2 diabetes:? Continues with p.r.n. use insulin therapy. Has been taking Humalog 8-9 units depending on blood sugars she things are high. Today's A1c 7.2 He report he does check his sugars at home once daily/ PRN. of note metformin though had side effect of abd pain. .. Hypertension: Blood pressure noted to be elevated today. Patient does not take any antihypertensive medication. Will start him on lisinopril for renal protection and blood pressure control. .. HLD: Patient continues statin therapy without side effect. Most recent lipid panel showing appropriate LDL and total cholesterol Colon cancer screening- has recently undergone colonoscopy, fair bowel prep and polyps were found. Needs repeat in 6 months. PFSH Medical History Tubular adenoma Surgical History Hx of colonoscopy H/O hernia repair Family History Sister Heart disease Father Throat cancer Social History Housing: House Patient Tobacco Use Status: Never used Tobacco e-Cigarette/Vaping Use: Never Used Second Hand Smoke Exposure: No service: No Current occupational status: retired Cognitive needs: No Hearing needs: No Vision needs: No Questionnaire PHQ-9 Over the last 2 weeks, how often have you been bothered by any of the following problems? 1. Little interest or pleasure in doing things: not at all 2. Feeling down, depressed, or hopeless: not at all 3. Trouble falling or staying asleep, or sleeping too much: not at all 4. Feeling tired or having little energy: not at all 5. Poor appetite or overeating: not at all 6. Feeling bad about yourself - or that you are a failure or have let yourself or your family down: not at all 7. Trouble concentrating on things, such as reading the newspaper or watching television: not at all 8. Moving or speaking so slowly that other people could have noticed. Or the opposite - being so fidgety or restless that you have been moving around a lot more than usual: not at all 9. Thoughts that you would be better off or of hurting yourself in some way: not at all Total score: 0 Depression Screening Interpretation: Negative Depression Screening Done: Yes 99655 - PHQ-9 Billing: Yes Source: Developed by Drs. Himanshu Wagner, Chaya Bazzi, Aneesh Lopez and colleagues, with an educational charlotte from [employer]. Thrive Questionnaire Date Thrive assessed: 06/25/24 I am a: Patient What is your living situation today?: I have a steady place to live Within the past 12 months, did the food you bought not last and you didn't have the money to get more?: Never true Within the past 12 months, did you worry whether your food would run out before you got money to buy more?: Never true Do you have trouble paying for medicines?: No Do you have trouble getting transportation to medical appointments?: No Do you have trouble paying your heating and electricity bill?: No Do you have trouble taking care of your child, family member or friend?: No Do you have trouble with day-to-day activities such as bathing, preparing meals, shopping, managing finances, etc.?: No Are you currently unemployed and looking for a job?: No Are you interested in more education?: No Please select the resources that you would like help with: None Currently or been in a relationship where the following occur: No concerns reported THRIVE Score: 0 AUDIT C Alcohol Use Questionnaire (AUDIT-C) 1. How often do you have a drink containing alcohol?: Never 3. How often do you have six or more drinks on one occasion?: Never Total Score: 0 CHRISS-7 AMB Questionnaire CHRISS-7 Date CHRISS - 7 assessed: 06/25/24 Feeling nervous, anxious, or on edge: 0 = Not at all Not being able to stop or control worryin = Not at all Worrying too much about different things: 0 = Not at all Trouble relaxin = Not at all Being so restless that it is hard to sit still: 0 = Not at all Becoming easily annoyed or irritable: 0 = Not at all Feeling afraid as if something awful might happen: 0 = Not at all Total CHRISS-7 score (0-4 normal; 5-9 mild; 10-14 moderate; 15-21 severe): 0 Source: Developed by Drs. Himanshu Wagner, Chaya Bazzi, Aneesh Lopez and colleagues, with an educational charlotte from [employer]. CHRISS-7 Assessment Billing CHRISS-7 Assessment Tool: CHRISS-7 Assessment 20255 Physical exam (Primary Care) Vital Signs: Last Vital Signs Temp 97.3 F 06/25/24 15:40 Pulse 60 06/25/24 15:40 BP 118/82 06/25/24 15:40 Pulse Ox 98 06/25/24 15:40 Oxygen Delivery Method Room Air 06/25/24 15:40 BMI result Body Mass Index 30.6 Tobacco/Smoking Status: Tobacco use Status Tobacco use date assessed 06/25/24 06/25/24 15:47 Patient Tobacco Use Status Never used Tobacco 06/25/24 15:47 e-Cigarette/Vaping Use Never Used 06/25/24 15:47 PHQ-9: PHQ-9 Score PHQ-9: Total score 0 06/25/24 15:47 Depression Screening Interpretation: Negative Thrive Assessment: Date of Thrive Assessment Date Thrive assessed 06/25/24 06/25/24 15:47 Currently or been in a relationship where the following occur: No concerns reported Results AMB Hemoglobin A1c AMB Hemoglobin A1c 7.2 % Last Edit by VANESA Hope on 06/25/24 15:48 Coding Diagnoses Type 2 diabetes mellitus without complication, with long-term current use of insulin E11.9; Z79.4 Diabetes mellitus intermediate insulin use: with intermodal customer service use Diabetes mellitus complication status: without complication Mixed hyperlipidemia E78.2 Hyperlipidemia type: mixed hyperlipidemia Primary hypertension I10 Hypertension type: primary hypertension Additional Codes CHRISS-7 Assessment Billing - CHRISS-7 Assessment Tool: CHRISS-7 Assessment [id number] ([id number]) PHQ-9 - 13150 - PHQ-9 Billing: Yes ([id number]) Assessment & Plan Assessment & Plan (1) DMII (diabetes mellitus, type 2): Code(s): E11.9 - Type 2 diabetes mellitus without complications Category: Medical Qualifiers: Diabetes mellitus intermodal customer service insulin use: with intermodal customer service use Diabetes mellitus complication status: without complication Qualified Code(s): E11.9 - Type 2 diabetes mellitus without complications; Z79.4 - senior living (current) use of insulin (2) HLD (hyperlipidemia): Code(s): E78.5 - Hyperlipidemia, unspecified Category: Medical Qualifiers: Hyperlipidemia type: mixed hyperlipidemia Qualified Code(s): E78.2 - Mixed hyperlipidemia (3) HTN (hypertension): Code(s): I10 - Essential (primary) hypertension Category: Medical Qualifiers: Hypertension type: primary hypertension Qualified Code(s): I10 - Essential (primary) hypertension Orders: Orders AMB Hemoglobin A1c Today E11.9 - Type 2 diabetes mellitus without complications, Z79.4 - intermodal customer service (current) use of insulin Lipid Panel Today E78.2 - Mixed hyperlipidemia Comprehensive Gap. Panel Fast Today E11.9 - Type 2 diabetes mellitus without complications, Z79.4 - intermodal customer service (current) use of insulin Complete Blood Count no Diff Today E11.9 - Type 2 diabetes mellitus without complications, Z79.4 - intermodal customer service (current) use of insulin Microalbumin, Random (w Creat) Today I10 - Essential (primary) hypertension Medications: Changed From pen needle, diabetic (BD Ultra-Fine Short Pen Needle) As directed 100 ea 3RF E11.9 - Type 2 diabetes mellitus without complications, Z79.4 - intermodal customer service (current) use of insulin To pen needle, diabetic As directed 100 ea 3RF E11.9 - Type 2 diabetes mellitus without complications, Z79.4 - senior living (current) use of insulin Refilled atorvastatin 40 mg PO DAILY 90 days 90 tabs 2RF E78.5 - Hyperlipidemia, unspecified lisinopril 5 mg PO DAILY 90 days 90 tabs 2RF I10 - Essential (primary) hypertension insulin glargine (Lantus Solostar U-100 Insulin) increase dose to 15U daily 15 units (0.15 mL) subcut QAM 30 days 15 mL 1RF E11.9 - Type 2 diabetes mellitus without complications, Z79.4 - intermodal customer service (current) use of insulin
[2024-06-25 15:40] VITALS: BP 118/82; PULSE 60; TEMP 36.3; O2SAT 98; BMI 30.6
== END 2024-06-25 16:03 | disposition home or self-care (01) ==
LOC: HO.HMCH 14:46
PROVIDERS: PCP Physician Assistant; Visit Provider Physician Assistant
DX: E11.9 Type 2 diabetes mellitus without complications (principal); Z79.4 Long term (current) use of insulin

== ENCOUNTER → 2024-06-25 14:46 | Outpatient (BNVA) | payer MEDICARE, SELFPAY | PROVIDERS: PCP Physician Assistant; Visit Provider Physician Assistant | DX: E11.9 Type 2 diabetes mellitus without complications (principal); E78.2 Mixed hyperlipidemia; I10 Essential (primary) hypertension; Z79.4 Long term (current) use of insulin | CPT/HCPCS: 83036; 96127; 99212 ==

== ENCOUNTER 2024-09-24 08:05 | Outpatient (AMB) | payer MEDICARE, SELFPAY ==
--- NOTE | 2024-09-24 08:17 | MHC.OFFVIS ---
Vital Signs 09/24/24 08:19 Height 5 ft 6 in Weight 189 lb BMI 30.5 BP 150/80 H Blood Pressure Location Rt brachial Position Sitting Pulse 68 Pulse Source Pulse Oximeter Pulse Oximetry (%) 97 Oxygen Delivery Method Room Air Intake Visit Reasons: 30 m. Discuss colo. Fair prep recall (2022) Intake Note: Est pt for recall colo screening per fair prep. Last w/ Dr. Aldana 2022. CC: C.O. intermittent rectal discomfort. Pt denies any additional sx including any rectal bleeding or difficulty with BMs. Cutting Room Supervisor Required: Yes Cutting Room Supervisor Services: Cutting Room Supervisor Present Cutting Room Supervisor Name: Az (GI) + Asif [id number] Information Interpreted: clinical only Accompanied by: Self / Same As Patient Allergies metformin Adverse Reaction (Intermediate, Verified 09/24/24 08:18) Abdominal Pain HPI HPI 30 m. Discuss colo. Fair prep recall (2022): Details: LAST VISIT Tubular adenoma Status post colonoscopy Plan Discussed with patient the importance of good bowel prep. Trying to do good job with clear liquids. Avoiding fiber for few days before the procedure. Patient will start taking Dulcolax 7 days before procedure in the evening with 1 day before procedure for tablets at noon. Patient will do split MiraLax prep. May book the procedure for patient. Patient denies any issues with anesthesia. Not on any anticoagulation medications. Patient denies any respiratory or cardiac symptoms. I will see patient after the procedure, sooner on as needed basis. Patient is agreeable to this plan and verbalizes understanding of instructions. He was given the opportunity to ask questions and all questions answered. ? Thank you for allowing to participate in his care New bisacodyl (Dulcolax (bisacodyl)) Comience a dora 2 tabletas todas las noches 7 helton antes del colonoscopia y 1 rashad antes del procedimiento, tome 4 tabletas al mediodia seguido de la colonoscopia de MiraLax. 10 mg (2 x 5 mg) PO BEDTIME 16 tabs 0RF Z12.11 polyethylene glycol 3350 (Miralax) As directed by gastroenterology department at [facility] 238 grams PO ONCE 238 grams 0RF Z12.11 bisacodyl (Dulcolax (bisacodyl)) Comience a dora 2 tabletas todas las noches 7 helton antes del colonoscopia y 1 rashad antes del procedimiento, tome 4 tabletas al mediodia seguido de la colonoscopia de MiraLax. 10 mg (2 x 5 mg) PO BEDTIME 16 tabs 0RF Z12.11 TODAY'S VISIT Patient is here today to discuss going for colonoscopy. Patient had colonoscopy in 2022 with suboptimal prep and recommendation was made for patient to return for colorectal screening in 3-6 months. Patient never went for another colonoscopy and never returned back to the office. Patient is here today to discuss going for colonoscopy. Patient had no issues with anesthesia. Denies any cardiac or respiratory is symptoms. Denies any melena, hematochezia, unintentional weight loss or ribbon like stools. Patient states that he is no longer taking Lantus. Patient states that he only takes it as needed. [facility] Medical History Tubular adenoma Surgical History Hx of colonoscopy H/O hernia repair Family History Sister Heart disease Father Throat cancer Social History Housing: House Patient Tobacco Use Status: Never used Tobacco e-Cigarette/Vaping Use: Never Used Second Hand Smoke Exposure: No service: No Current occupational status: retired Cognitive needs: No Hearing needs: No Vision needs: No Review of Systems Const Denies weight gain and Denies weight loss ENT Reports no additional complaints, Denies dysphagia and Denies odynophagia Card Reports no additional complaints Resp Reports no additional complaints GI Denies abdominal pain, Denies belching, Denies melena, Denies bloating, Denies change in bowel habits, Denies dysphagia, Denies excessive flatus, Denies dyspepsia, Denies heartburn, Denies diarrhea, Denies loose stools, Denies nausea, Denies odynophagia and Denies vomiting Reports no additional complaints Musc Reports no additional complaints Neuro Reports no additional complaints Psych Reports no additional complaints Endo Reports no additional complaints Physical Exam Const General: healthy appearing, no acute distress and well developed Nutritional Appearance: obese Orientation/consciousness: patient oriented x3 Resp Effort & Inspection: normal respiratory effort, able to speak in complete sentences, no tracheal deviation and symmetric chest movement Auscultation: clear to auscultation bilaterally Cardio Rate: regular rate GI Inspection: Yes normal to inspection, No distended and Yes obesity Palpation (GI): Soft to palpation, not firm, nontender and No hepatosplenomegaly present Auscultation: normal bowel sounds General: Yes no CVA tenderness Back/Spine/Pelvis Back: no CVA tenderness Skin General skin exam: elasticity normal, turgor normal and dry skin Neuro General: patient oriented x3 Psych Appearance: grossly normal Mental Status: mental status grossly normal Assessment & Plan Assessment & Plan (1) Colon cancer screening: Code(s): Z12.11 - Encounter for screening for malignant neoplasm of colon Category: Medical (2) Positive colorectal cancer screening using Cologuard test: Code(s): R19.5 - Other fecal abnormalities Category: Medical Plan What to expect before during and after procedure discussed with patient. Stressed importance of good bowel prep and clear liquid diet day before procedure. Patient will start taking Dulcolax 1 week before procedure. Patient denies any issues with anesthesia in the past. Denies any cardiac or respiratory symptoms. I will see patient after the procedure, sooner on as needed basis. He is agreeable to this plan and verbalizes understanding of instructions. He was given the opportunity to ask questions and all questions answered. Thank you for allowing me to participate in his care Medications: New bisacodyl (Dulcolax (bisacodyl)) Start taking 2 tablet every night 7 days before the procedure and 1 day before procedure take 4 tablets at noon time followed by MiraLax prep 10 mg (2 x 5 mg) PO BEDTIME 16 tabs 0RF Z12.11 - Encounter for screening for malignant neoplasm of colon polyethylene glycol 3350 (Miralax) As directed by gastroenterology [facility] at [facility] 238 grams PO ONCE 238 grams 0RF Z12.11 - Encounter for screening for malignant neoplasm of colon Coding Level of Care Code Est Pt Level 3 (45644) Diagnoses Colon cancer screening Z12.11 Positive colorectal cancer screening using Cologuard test R19.5 Time Spent (min) 30 Comment 20 minutes spent with patient and additional 10 minutes spent reviewing his records
[2024-09-24 08:19] VITALS: BP 150/80; PULSE 68; O2SAT 97; BMI 30.5
== END 2024-09-24 08:53 | disposition home or self-care (01) ==
LOC: HO.HGI 08:06
PROVIDERS: PCP Physician Assistant; Visit Provider Nurse Practitioner Family
DX: R19.5 Other fecal abnormalities (principal); Z01.818 Encounter for other preprocedural examination; Z12.11 Encounter for screening for malignant neoplasm of colon; Z91.199 Patient's noncompliance with other medical treatment and regimen due to unspecified reason
CPT/HCPCS: 99213

== ENCOUNTER → 2024-09-24 08:05 | Outpatient (BNVA) | payer MEDICARE, SELFPAY | PROVIDERS: PCP Physician Assistant; Visit Provider Nurse Practitioner Family | DX: Z12.11 Encounter for screening for malignant neoplasm of colon (principal); R19.5 Other fecal abnormalities | CPT/HCPCS: 99212 ==

== ENCOUNTER 2024-10-13 09:14 | Day surgery (SDC) | payer MEDICARE, SELFPAY ==
--- NOTE | 2024-10-10 11:18 | P.CONAN_ITS ---
Documented by User: Maryanne Morales NP 10/10/24 11:19 HPI - Anesthesia Eval Consult details Narrative: 74 yr old male for colonoscopy Type 2 DM PMFSH Active Problems Active Problems: All Active Problems (Updated 10/10/24 @ 11:05 by Maryam Duarte, RN) Positive colorectal cancer screening using Cologuard test (Acute) Obese (Acute) Colon cancer screening (Acute) HTN (hypertension) (Acute) HLD (hyperlipidemia) (Acute) DMII (diabetes mellitus, type 2) (Acute) Tubular adenoma (Acute) Past Medical History Medical History Type 2 diabetes mellitus Hyperlipidemia HTN (hypertension) Tubular adenoma Family History Family History Sister Heart disease Father Throat cancer Surgical History Surgical History Hx of colonoscopy H/O hernia repair History of Problems with Anesthesia: No Social History Social History Housing: House Do you presently have visiting nurse or other home services: No Patient Tobacco Use Status: Never used Tobacco e-Cigarette/Vaping Use: Never Used Second Hand Smoke Exposure: No Have you been hit, kicked, punched, or otherwise hurt by someone within the past year? If so, by whom?: No Are you DNR?: No Advance Directives: No Advance Directives Information Provided: Yes Poor oral hygiene: No service: No Current occupational status: retired Cognitive needs: No Hearing needs: No Vision needs: No Meds Allergies Allergy/AdvReac Type Severity Reaction Status Date / Time metformin AdvReac Intermediate Abdominal Verified 10/13/24 10:20 Pain Home Medications ?Medication ?Instructions ?Recorded ?Confirmed ?Last Taken ?Type alcohol swabs (Alcohol Prep Pads) pad topical QID diab etes mellitus 05/03/21 03/29/23 Unknown History type 2 blood-glucose meter (OneTouch #1 ea 05/03/21 10/13/24 Unknown History Verio Flex Meter) insulin syringe-needle U-100 1 mL #10 ea 12/20/2209/29 Unknown History 28 gauge x 1/2 Assessment and Plan Final Anesthetic Review History of Problems with Anesthesia: No Documented by User: Nick Fisher MD 10/13/24 11:22 [facility] Past Medical History Medical History Type 2 diabetes mellitus Hyperlipidemia HTN (hypertension) Tubular adenoma Family History Family History Sister Heart disease Father Throat cancer Family history of problems with anesthesia: No Surgical History Surgical History Hx of colonoscopy H/O hernia repair Social History Social History Housing: House Do you presently have visiting nurse or other home services: No Patient Tobacco Use Status: Never used Tobacco e-Cigarette/Vaping Use: Never Used Second Hand Smoke Exposure: No Have you been hit, kicked, punched, or otherwise hurt by someone within the past year? If so, by whom?: No Are you DNR?: No Advance Directives: No Advance Directives Information Provided: Yes Poor oral hygiene: No service: No Current occupational status: retired Cognitive needs: No Hearing needs: No Vision needs: No Meds Allergies Allergy/AdvReac Type Severity Reaction Status Date / Time metformin AdvReac Intermediate Abdominal Verified 10/13/24 10:20 Pain Home Medications ?Medication ?Instructions ?Recorded ?Confirmed ?Last Taken ?Type alcohol swabs (Alcohol Prep Pads) pad topical QID diab etes mellitus 05/03/21 03/29/23 Unknown History type 2 blood-glucose meter (OneTouch #1 ea 05/03/21 10/13/24 Unknown History Verio Flex Meter) insulin syringe-needle U-100 1 mL #10 ea 12/20/2209/29 Unknown History 28 gauge x 1/2 Exam Airway Mallampati Class: II TM Dist: >3cm Neck ROM: Full Loose/Missing/Broken Teeth: No Heart: RRR Lungs: CTA Assessment and Plan Assessment Anesthesia Assessment: Anesthesia Plan Discussed and Chart Reviewed Final Anesthetic Review Family History of Problems with Anesthesia: No NPO: Yes (4 hours clear liquid) ASA Class: II Final Preanesthetic Review: No Changes in Pt Med Stat, Meds/Allgs Chart Reviewed, Consent Obtained/Reviewed and Anes Risks/Benef Reviewed Patient Risk: Low Procedure Risk: Low Anesthetic Plan Disposition: Standard PACU
[2024-10-13 10:10] LABS: Glucose, Whole Blood 158 mg/dL (60-115)
[2024-10-13 10:14] VITALS: BMI 30.2
[2024-10-13] MEDS: Lactated Ringers 1,000 ML 100 ML IVCONT (10:14)
[2024-10-13 10:16] VITALS: BP 142/73; PULSE 53; RESP 18; TEMP 36.6; O2SAT 98
--- NOTE | 2024-10-13 11:08 | MHC.SHP ---
Pre-Procedural Eval Section A - 24 Hr Update-Section A only Date of Service: 10/13/24 The patient is an INPATIENT: No Changes since office visit: Yes Patient answered all questions; No Cold of Flu in the past 2 weeks, No New Medical Problems and No Changes in Medication The patient has been examined within 24 hours of the surgical procedure. The History & Physical has been completed within 30 days and I have reviewed it.: Yes Section B - Complete if H&P > 30 days Chief Complaint: screening Allergies: Allergies Allergy/AdvReac Type Severity Reaction Status Date / Time metformin AdvReac Intermediate Abdominal Verified 10/13/24 10:20 Pain Exam Surgical H&P Exam: Normal: Heart, Normal: Lungs, Normal: Extremities and Normal: Abdomen Plan Diagnosis/Plan: Unchanged I have reviewed the history and physical and performed a pertinent physical examination on my patient. No changes have occurred unless specified. Time Spent With Patient Time: Total time managing care of this patient today ____ minutes.
--- NOTE | 2024-10-13 13:03 | P.OPN-COLO_ITS ---
Colonoscopy Operative Note Operative Note Date of Service: 10/13/24 Narrative: COLONOSCOPY TILL CECUM WITH SNARE POLYPECTOMY, SUBMUCOSAL INJECTION AND HEMOCLIP PLACEMENT Pre-op diagnosis: Surveillance for colon polyps. Post-op diagnosis:? Colon polyps, Diverticulosis, hemorrhoids Endoscopist:? Sera Albright MD Anesthesia:?MAC Consent: Indications for the procedure and potential complications of bleeding, perforation, reaction to medications and missed diagnosis were discussed with the patient with the help of an [facility] [place] biblical languages professor, Ruby, and informed consent was obtained. Instrument: Olympus CF H 190 L variable stiffness adult colonoscope Monitoring: Vital signs and clinical assessment, intermittent blood pressure monitoring, continuous EKG monitoring, Pulse oximetry and Carbon Dioxide monitoring were done throughout the procedure. Please see anesthesia flowsheet. Colon withdrawl time was 20 minutes. Procedure: The patient was placed in the left lateral decubitis position and pre-procedure medications were administered. After a digital rectal examination of the ano-rectum, the video colonoscope was inserted into the rectum and advanced through the colon to the cecum. The colonoscope was slowly withdrawn in a retrograde panoramic fashion and the colon mucosa was carefully examined including a retroflexed view of the rectum. Findings and interventions are described below. Procedure Difficulty: without difficulty Findings: Terminal Ileum: Not evaluated Cecum: Normal Ascending Colon: A 12-15 mm flat polyp raised with 2 cc of [place] and removed with a stiff hot snare. Polypectomy site was closed with 1 hemoclip Transverse Colon: A 7-8 mm sessile polyp - removed with a cold snare. A 12-15 mm sessile polyp - removed with a hot snare Descending Colon: Moderate diverticulosis Sigmoid Colon: Moderate diverticulosis Rectum: Normal Ano-rectum: Moderate internal hemorrhoids Colon preparation: Good after copious irrigation. [place] Bowel Preparation Scale Right colon; 2 Transverse colon: 2 Left colon; 2 (0 = Unprepared colon segment with mucosa not seen due to solid stool that cannot be cleared. 1 = Portion of mucosa of the colon segment seen, but other areas of the colon segment not well seen due to staining, residual stool and/or opaque liquid. 2 = Minor amount of residual staining, small fragments of stool and/or opaque liquid, but mucosa of colon segment seen well. 3 = Entire mucosa of colon segment seen well with no residual staining, small fragments of stool or opaque liquid) Impression and Post Procedure Diagnosis: Colonoscopy Findings: Three small to medium sized polyps were removed Moderate diverticulosis seen in the left colon Moderate hemorrhoids on retroflexed exam. Plan: I will send a letter with biopsy results. Repeat Colonoscopy in 3 years if polyps are adenomatous and due to history of multiple adenomatous polyps. Above findings were reviewed with the patient and relevant handouts were given and the discharge area.
[2024-10-13 13:07] VITALS: BP 101/51; PULSE 50; RESP 20; TEMP 36.1; O2SAT 96
[2024-10-13 13:16] VITALS: BP 103/80; PULSE 55; RESP 16; TEMP 36.5; O2SAT 97
== END 2024-10-13 13:51 | disposition home or self-care (01) ==
PROVIDERS: PCP Physician Assistant; Visit Provider Internal Medicine Gastroenterology
PROC: 0DJD8ZZ Inspection of Lower Intestinal Tract, Via Natural or Artificial Opening Endoscopic (ICD-10-PCS; CPT 45378; principal; 2024-10-13 11:10)
DX: Z12.11 Encounter for screening for malignant neoplasm of colon (principal); D12.2 Benign neoplasm of ascending colon; D12.3 Benign neoplasm of transverse colon; K57.30 Diverticulosis of large intestine without perforation or abscess without bleeding; K64.8 Other hemorrhoids; Z86.0101 Personal history of adenomatous and serrated colon polyps; E11.9 Type 2 diabetes mellitus without complications; I10 Essential (primary) hypertension; E78.5 Hyperlipidemia, unspecified; Z79.899 Other long term (current) drug therapy
CPT/HCPCS: 45385; 45381; 82947; 88305; J2003; J2704

== ENCOUNTER → 2024-10-13 09:14 | Outpatient (BNV) | payer MEDICARE, SELFPAY | PROVIDERS: PCP Physician Assistant; Visit Provider Internal Medicine Gastroenterology | DX: Z12.11 Encounter for screening for malignant neoplasm of colon (principal); K63.5 Polyp of colon; K57.90 Diverticulosis of intestine, part unspecified, without perforation or abscess without bleeding; K64.8 Other hemorrhoids | CPT/HCPCS: 45381; 45385 ==